=== PATIENT | male | born 2005 | race Caucasian/White ===

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

== ENCOUNTER 2023-02-05 12:22 | Emergency (ER) | payer SELFPAY ==
[2023-02-05 12:53] VITALS: BP 147/83
[2023-02-05 13:17] VITALS: PULSE 88
== END 2023-02-05 13:17 | disposition home or self-care (01) ==
LOC: MW.ED 12:22
DX: K11.20 Sialoadenitis, unspecified (principal); Z79.899 Other long term (current) drug therapy
CPT/HCPCS: 99283